=== PATIENT | male | born 1995 | race American Indian/Alaskan Native ===

== ENCOUNTER 2018-07-16 16:28 | Emergency (ER) | payer OTHER ==
[2018-07-16 16:46] VITALS: BP 143/80; PULSE 68; RESP 19; TEMP 98.8; O2SAT 100
--- NOTE | 2018-07-16 17:24 | ED PDOC ---
Lower Extremity Pain/Injury Time Seen by Provider: 07/16/18 16:43 Chief Complaint (Nursing): Lower Extremity Problem/Injury Chief Complaint (Provider): Knee Pain History Per: Patient History/Exam Limitations: no limitations Onset/Duration Of Symptoms: Hrs Current Symptoms Are (Timing): Still Present Additional Complaint(s): 22 year old male presents to the ER for an evaluation of right knee pain onset today. Patient reports he was doing [employer] martial arts and felt a pop on his right knee. He states he was diagnosed with torn meniscus in the past. Patient denies numbness, tingling, fever or taking medication for pain. PMD: No Family Provider Past Medical History Reviewed: Historical Data, Nursing Documentation, Vital Signs Vital Signs: Last Vital Signs Temp 98.8 F 07/16/18 16:44 Pulse 68 07/16/18 16:44 Resp 19 07/16/18 16:44 BP 143/80 07/16/18 16:44 Pulse Ox 100 07/16/18 16:44 - Medical History PMH: No Chronic Diseases - Surgical History Surgical History: Appendectomy - Family History Family History: States: Unknown Family Hx - Home Medications Home Medications: Ambulatory Orders Medication Instructions Recorded Ibuprofen [Motrin Tab] 800 mg PO Q6H PRN #20 tab 07/16/18 - Allergies Allergies/Adverse Reactions: Allergies Allergy/AdvReac Type Severity Reaction Status Date / Time No Known Allergies Allergy Verified 07/16/18 16:46 Review of Systems ROS Statement: Except As Marked, All Systems Reviewed And Found Negative Constitutional: Negative for: Fever Musculoskeletal: Positive for: Leg Pain (right knee) Neurological: Negative for: Weakness, Numbness, Other (tingling ) Psych: Negative for: Suicidal ideation (homicidal ideation) Physical Exam - Reviewed Nursing Documentation Reviewed: Yes Vital Signs Reviewed: Yes - Physical Exam Appears: Positive for: Non-toxic, No Acute Distress Head Exam: Positive for: ATRAUMATIC, NORMAL INSPECTION, NORMOCEPHALIC Skin: Positive for: Normal Color, Warm, DRY Eye Exam: Positive for: Normal appearance Extremity: Positive for: Tenderness (right lateral knee over LCL), Capillary Refill (less than 2 seconds ). Negative for: Normal ROM (decreased extension secondary due to pain), Deformity, Other (ecchymosis) Neurologic/Psych: Positive for: Alert, Oriented - ECG O2 Sat by Pulse Oximetry: 100 (RA) Pulse Ox Interpretation: Normal Medical Decision Making Medical Decision Making: Time: 1647 Initial Plan: --Knee 3 Views RT [RAD] --Motrin 600mg --Tylenol 650mg --Reevaluation Time: 1741 PROCEDURE: Right Knee Radiographs. HISTORY: pain COMPARISON: None. FINDINGS: BONES: No acute fracture. JOINTS: Unremarkable. JOINT EFFUSION: None. OTHER FINDINGS: Enthesopathy in the surgeon of the quadriceps tendon. IMPRESSION: No demonstrated fracture or dislocation. Knee immobilizer given. Pt does not want crutches. STates he has them at home. Scribe Attestation: Documented by Parker Wang, acting as a scribe for Elizabet Dykes PA-C. Provider Scribe Attestation: All medical record entries made by the Scribe were at my direction and personally dictated by me. I have reviewed the chart and agree that the record accurately reflects my personal performance of the history, physical exam, medical decision making, and the department course for this patient. I have also personally directed, reviewed, and agree with the discharge instructions and disposition. Disposition - Clinical Impression Clinical Impression: Knee injury - Patient ED Disposition Is Patient to be Admitted: No Counseled Patient/Family Regarding: Diagnosis, Need For Followup, Rx Given - Disposition Referrals: Jefry Coy MD [Medical Doctor] - Disposition: Routine/Home Disposition Time: 18:02 Condition: GOOD Prescriptions: Ibuprofen [Motrin Tab] 800 mg PO Q6H PRN #20 tab PRN Reason: Pain Instructions: Knee Sprain (DC) Forms: [employer] (Malay)
--- NOTE | 2018-07-16 17:43 | RAD ---
Date of service: 07/16/2018 PROCEDURE: Right Knee Radiographs. HISTORY: pain COMPARISON: None. FINDINGS: BONES: No acute fracture. JOINTS: Unremarkable. JOINT EFFUSION: None. OTHER FINDINGS: Enthesopathy in the surgeon of the quadriceps tendon. IMPRESSION: No demonstrated fracture or dislocation.
== END 2018-07-16 18:21 | disposition home or self-care (01) ==
LOC: H.ER 16:28 → MERGE 16:28 → H.ER 18:21
DX: S89.91XA Unspecified injury of right lower leg, initial encounter (principal); X50.9XXA Other and unspecified overexertion or strenuous movements or postures, initial encounter; Y92.89 Other specified places as the place of occurrence of the external cause